=== PATIENT | female | born 1960 ===

== ENCOUNTER 2024-03-21 18:10 | Emergency (ER) | payer SELFPAY ==
[~2024-03-21] VITALS: Ht 152.4 cm; Wt 49.9 kg
[2024-03-21] MEDS ORDERED: NS 1,000 ML IV SCH (18:25)
[2024-03-21 18:55] LABS: BASOPHILS ABSOLUTE AUTO 0.06 K/mm3 (0.00-0.23); BASOPHILS PERCENT AUTO 1 % (0-2); EOSINOPHILS ABSOLUTE AUTO 0.13 K/mm3 (0.00-0.68); EOSINOPHILS PERCENT AUTO 3 % (0-6); Hemoglobin 12.6 g/dL (11.5-16.0); IMMATURE GRAN PERCENT AUTO 0 % (0-1); LYMPHOCYTES ABSOLUTE AUTO 2.45 K/mm3 (0.84-5.20); LYMPHOCYTES PERCENT AUTO 47 % (21-46); MONOCYTES ABSOLUTE AUTO 0.48 K/mm3 (0.16-1.47); MONOCYTES PERCENT AUTO 9 % (4-13); Mean Corpuscular HGB 26.9 pg (26.0-34.0); Mean Corpuscular HGB Conc 32.3 g/dL (31.5-36.5); Mean Corpuscular Volume 83 fL (80-100); Mean Platelet Volume 11.2 fL (9.1-12.4); NEUTROPHILS ABSOLUTE AUTO 2.08 K/mm3 (1.96-9.15); NEUTROPHILS PERCENT AUTO 40 % (41-73); Platelet Count 336 K/mm3 (150-400); RDW Coefficient Variation 14.3 % (11.7-14.2); RDW Standard Deviation 42.7 fL (35.1-46.3); Red Blood Cell Count 4.69 M/mm3 (3.80-5.20)
[2024-03-21 19:14] LABS: Albumin, Blood 3.3 g/dL (3.4-5.0); Bilirubin, Total 0.7 mg/dL (0.1-1.0); Bun/Creatinine Ratio 25.7 (12.0-20.0); Calcium, Blood 8.7 mg/dL (8.5-10.1); Creatinine, Blood 0.97 mg/dL (0.40-1.00); Globulin, Blood 3.4 g/dL (2.2-4.0); Potassium, Blood 3.9 mmol/L (3.5-5.5); Total Protein, Blood 6.7 g/dL (6.4-8.2)
[2024-03-21 19:19] LABS: Influenza A, PCR NEGATIVE (NEGATIVE); Influenza B, PCR NEGATIVE (NEGATIVE); Resp Syncytial Virus, PCR NEGATIVE (NEGATIVE); SARS-Cov-2 (COVID-19) PCR, MMC NEGATIVE (NEGATIVE)
[2024-03-21] MEDS ORDERED: Ipratropium/Albuterol SulF 2.5-0.5MG/3 ML Amp INH ONE (19:40)
[2024-03-21] MEDS ORDERED: BUDESONIDE-FO10.2 G2 INH (21:24)
[2024-03-21] MEDS ORDERED: Prednisone20 MG PO (21:24)
[2024-03-21] MEDS ORDERED: PredniSONE 20 MG Tab PO ONE (21:25)
== END 2024-03-21 21:40 | disposition home or self-care (01) ==
LOC: ER 18:10
PROVIDERS: Emergency Medicine
DX: J98.01 Acute bronchospasm (principal); Z87.891 Personal history of nicotine dependence
CPT/HCPCS: 0241U; 71045; 80053; 84484; 85025; 93005; 93010; 94640; 94664; 99285-25; J7030; J7512

== ENCOUNTER → 2024-03-21 | Outpatient (CLI) | payer SELFPAY ==
[~2024-03-21] MED LIST: BUDESONIDE-FO10.2 G2 INH; Prednisone20 MG PO
[2024-03-21 16:26] LABS: BASOPHILS ABSOLUTE AUTO 0.07 K/mm3 (0.00-0.23); BASOPHILS PERCENT AUTO 1 % (0-2); EOSINOPHILS PERCENT AUTO 2 % (0-6); Hematocrit 37.1 % (33.0-51.0); Hemoglobin 12.5 g/dL (11.5-16.0); IMMATURE GRAN ABSOLUTE AUTO 0.01 K/mm3 (0.00-0.10); IMMATURE GRAN PERCENT AUTO 0 % (0-1); LYMPHOCYTES ABSOLUTE AUTO 2.32 K/mm3 (0.84-5.20); LYMPHOCYTES PERCENT AUTO 46 % (21-46); MONOCYTES PERCENT AUTO 10 % (4-13); Mean Corpuscular HGB 27.2 pg (26.0-34.0); Mean Corpuscular HGB Conc 33.7 g/dL (31.5-36.5); Mean Corpuscular Volume 81 fL (80-100); Mean Platelet Volume 11.3 fL (9.1-12.4); NEUTROPHILS ABSOLUTE AUTO 2.06 K/mm3 (1.96-9.15); NEUTROPHILS PERCENT AUTO 41 % (41-73); Platelet Count 332 K/mm3 (150-400); RDW Coefficient Variation 14.2 % (11.7-14.2); RDW Standard Deviation 41.3 fL (35.1-46.3); Red Blood Cell Count 4.59 M/mm3 (3.80-5.20); White Blood Cell Count 5.06 K/mm3 (4.00-11.30)
[2024-03-21 16:37] LABS: Albumin, Blood 3.1 g/dL (3.4-5.0); Albumin/Globulin Ratio 0.9 (0.8-1.8); Bilirubin, Total 0.7 mg/dL (0.1-1.0); Bun/Creatinine Ratio 21.6 (12.0-20.0); Calcium, Blood 8.8 mg/dL (8.5-10.1); Creatinine, Blood 1.11 mg/dL (0.40-1.00); Globulin, Blood 3.6 g/dL (2.2-4.0); Potassium, Blood 4.1 mmol/L (3.5-5.5); Total Protein, Blood 6.7 g/dL (6.4-8.2)
== END | disposition home or self-care (01) ==
LOC: LAB SHORT 16:21 → LAB 16:21
PROVIDERS: Family Medicine
DX: R07.9 Chest pain, unspecified (principal)
CPT/HCPCS: 80053; 84484; 85025

== ENCOUNTER 2024-03-26 16:46 | Inpatient (IN) | payer MEDICAID ==
[~2024-03-26] VITALS: Ht 152.4 cm; Wt 45.3 kg
[2024-03-26] MEDS ORDERED: Ipratropium/Albuterol SulF 2.5-0.5MG/3 ML Amp INH ONE (17:30)
[2024-03-26] MEDS ORDERED: Ondansetron HCl 2 MG / ML 2ML Vial IV ONE (17:30)
[2024-03-26 17:41] LABS: BASOPHILS ABSOLUTE AUTO 0.02 K/mm3 (0.00-0.23); BASOPHILS PERCENT AUTO 0 % (0-2); EOSINOPHILS ABSOLUTE AUTO 0.03 K/mm3 (0.00-0.68); EOSINOPHILS PERCENT AUTO 1 % (0-6); Hematocrit 37.8 % (33.0-51.0); Hemoglobin 12.5 g/dL (11.5-16.0); IMMATURE GRAN ABSOLUTE AUTO 0.03 K/mm3 (0.00-0.10); IMMATURE GRAN PERCENT AUTO 1 % (0-1); LYMPHOCYTES ABSOLUTE AUTO 0.97 K/mm3 (0.84-5.20); LYMPHOCYTES PERCENT AUTO 17 % (21-46); MONOCYTES ABSOLUTE AUTO 0.22 K/mm3 (0.16-1.47); MONOCYTES PERCENT AUTO 4 % (4-13); Mean Corpuscular HGB 27.2 pg (26.0-34.0); Mean Corpuscular HGB Conc 33.1 g/dL (31.5-36.5); Mean Corpuscular Volume 82 fL (80-100); Mean Platelet Volume 11.5 fL (9.1-12.4); NEUTROPHILS ABSOLUTE AUTO 4.57 K/mm3 (1.96-9.15); NEUTROPHILS PERCENT AUTO 78 % (41-73); Platelet Count 325 K/mm3 (150-400); RDW Coefficient Variation 14.5 % (11.7-14.2); RDW Standard Deviation 42.6 fL (35.1-46.3); Red Blood Cell Count 4.59 M/mm3 (3.80-5.20); White Blood Cell Count 5.84 K/mm3 (4.00-11.30)
[2024-03-26 17:57] LABS: Albumin, Blood 3.2 g/dL (3.4-5.0); Bilirubin, Total 0.7 mg/dL (0.1-1.0); Bun/Creatinine Ratio 33.4 (12.0-20.0); Calcium, Blood 8.5 mg/dL (8.5-10.1); Creatinine, Blood 0.81 mg/dL (0.40-1.00); Globulin, Blood 3.2 g/dL (2.2-4.0); Total Protein, Blood 6.4 g/dL (6.4-8.2)
[2024-03-26 18:47] LABS: Influenza A, PCR NEGATIVE (NEGATIVE); Influenza B, PCR NEGATIVE (NEGATIVE); Resp Syncytial Virus, PCR NEGATIVE (NEGATIVE); SARS-Cov-2 (COVID-19) PCR, MMC NEGATIVE (NEGATIVE)
[2024-03-26] MEDS ORDERED: CefTRIAXone Sodium 1,000 MG in NS 100 ML IV ONE (19:20)
[2024-03-26] MEDS ORDERED: Furosemide 10 MG / ML 2ML Vial IV ONE ×2 (19:25→22:00)
[2024-03-26] MEDS ORDERED: Albuterol 2.5 MG/3 ML VIAL INH PRN (21:35)
[2024-03-26] MEDS ORDERED: Ondansetron HCl 2 MG / ML 2ML Vial IV PRN (21:35)
[2024-03-26] MEDS ORDERED: LORazepam 2 MG/ML 1ML Injection IV PRN (21:40)
[2024-03-26] MEDS ORDERED: FLU VACC TS2024-25(6MOS UP)/PF 45 MCG/0.5 ML SYRINGE IM SCH (21:40)
[2024-03-26] MEDS ORDERED: Nitroglycerin 1 INCH/GM PKT TOP ONE (22:00)
[2024-03-26 22:19] LABS: U Amphetamine Screen DETECTED; U Barbituate Screen Not Detected; U Benzodiazapine Screen Not Detected; U Buprenorphine Screen Not Detected; U Cannabinoids Screen Not Detected; U Cocaine Screen Not Detected; U Methadone Screen Not Detected; U Methamphetamine Screen DETECTED; U Opiates Screen Not Detected; U Oxycodone Screen Not Detected; U Phencyclidine Screen Not Detected
[2024-03-26 22:37] LABS: Thyroid Stimulating Hormone 0.598 uIU/mL (0.360-4.800)
[2024-03-26 22:38] LABS: Base Excess Venous 5.3 mmol/L; Bicarbonate Venous 28.7 mmol/L (24.0-30.0); PCO2 Venous 42.7 mmHg (38-42); pH Blood Venous 7.45 (7.34-7.37)
[2024-03-27] VITALS (8 sets, daily range): BP systolic 127–150; BP diastolic 85–111
[2024-03-27] MEDS ORDERED: Acetaminophen 325 MG TABLET PO PRN (02:45)
--- NOTE | 2024-03-27 05:15 | NUR ---
SHIFT SUMMARY; PT ARRIVED INT HE ROOM FROM [facility] AT APPROX 0005. PT IS HERE FOR RESPIRATORY FAILURE D/T HEART FAILURE. PT WAS LETHARGIC UPON ARRIVAL FALLING BACK TO SLEEP WHILE ASKING QUESTIONS. THEN AT APPROX 0300 PT STARTED WAKING UP AND ASKED FOR FOOD. PT HAS BEEN ALERT AND ORIENTED X3-4, COOPERATIVE WITH CARES, PT ALSO ADMITS USE OF METH AND IS TRYING TO QUIT RECENTLY, AND THAT PT MOVED A COUPLE WEEKS AGO FROM [place], TO HELP HER QUIT. PT HAS BEEN DIURESING. PUREWICK IN PLACE FOR ACCURATE I&O'S. VITALS HRR SR 90'S, SBP 140-150'S, SATS >92% ON 2L OF O2. PT REPORTED HEADACHE TYLENOL WAS GIVEN AND WAS EFFECTIVE. PT HAS SLEPT T/O NIGHT, NO OTHER ISSUES REPORTED FOR THE SHIFT, WILL REPORT TO ONCOMIGN SHIFT
[2024-03-27 05:32] LABS: Bilirubin, Total 0.4 mg/dL (0.1-1.0); Bun/Creatinine Ratio 29.1 (12.0-20.0); Calcium, Blood 8.1 mg/dL (8.5-10.1); Creatinine, Blood 0.9 mg/dL (0.40-1.00); Globulin, Blood 2.9 g/dL (2.2-4.0); Magnesium, Blood 1.8 mg/dL (1.6-2.4); Potassium, Blood 3.4 mmol/L (3.5-5.5); Total Protein, Blood 5.9 g/dL (6.4-8.2)
[2024-03-27] MEDS ORDERED: Potassium Chloride 20 MEQ TabCR PO ONE ×2 (08:15→13:20)
[2024-03-27] MEDS ORDERED: Furosemide 10 MG/ML 4ML Vial IV SCH ×2 (09:00)
[2024-03-27] MEDS ORDERED: Enoxaparin 40 MG/0.4 ML SYR SC SCH (09:00)
[2024-03-27] MEDS ORDERED: Metoprolol Succinate 25 MG TABCR PO SCH (10:00)
--- NOTE | 2024-03-27 15:30 | NUR ---
TRANSFER TO MEDICAL FLOOR NOTE PT A&OX4 THROUGHOUT SHIFT. PT REPORTS NO CP BUT REPORTS SOB THAT SEEMS TO BE INPROVING. PTS O2 TITRATED DOWN TO 1L NC. MAINTAINING O2 SATS ABOVE 92% WITH OCCASIONAL DESATURATION WHILE SLEEPING. PT DROWSY THIS AM BUT EASILY ARROUSABLE AND BECAME MORE AWAKE AND ALERT THIS AFTERNOON. ECHO WAS PERFORMED THIS MORNING. PT RECIEVED A BED BATH AND BECAME SOB WHEN MOBILITY ARCHITECT LAID PT FLAT. PT WAS SAT BACK UP AND SOB WAS RESOLVED AFTER A COUPLE OF MINUTES. NO ACUTE CHANGES HAPPENED DURING THIS SHIFT. REPORT TO FLOOR RN. PTS BELONGINGS COLLECTED AND PT TRANSPORTED TO ROOM 355 VIA GURNEY BY BERRY.
--- NOTE | 2024-03-27 17:25 | NUR ---
RN NOTE MS HANDY TRANSFERED FROM PCU TO MEDICAL UNIT AT 1530HRS VIA BED. SHE IS ON CONTINUOUS PULSE OXIMETER, CURRENTLY 98% ON 2LNC, WAS DROPPING INTO THE 80S ON 1L NC EARLIER. SHE WAS USING A PUREWICK IN PCU WHICH WAS REMOVED ON TRANSFER. 1 PERSON ASSIST UP TO BEDSIDE COMMODE. SOB O/E BUT MAINTAINED O2 SATURATION. SR ON TELEMETRY, NO CALLS FROM BISTRO SERVER. SHE DESCRIBES 7/10 PAIN ACROSS HER UPPER CHEST, WORSE ON MEDIUM TO DEEP BREATH. SHE SAID THIS IS THE SAME PAIN SHE HAS HAD SINCE ADMISSION. SHE SAID SHE ALSO HAD LEFT LOWER CHEST PAIN WHICH SHE NO LONGER HAS. PAIN INCREASES WHEN SHE CHANGES POSITION. SHE IS SLEEPY BUT EASILY AROUSABLE. APPROPRIATE CONVERSATION. FAMILY EN ROUTE FROM [place], DAUGHTER AWARE OF DEPARTMENT/ROOM CHANGE. BED LOW, CALL LIGHT IN REACH, BED ALARM ON.
[2024-03-28 03:16] VITALS: BP 133/96
[2024-03-28 05:48] LABS: Bilirubin, Total 0.4 mg/dL (0.1-1.0); Bun/Creatinine Ratio 28.4 (12.0-20.0); Calcium, Blood 8.4 mg/dL (8.5-10.1); Creatinine, Blood 1.16 mg/dL (0.40-1.00); Globulin, Blood 3.1 g/dL (2.2-4.0); Total Protein, Blood 6.1 g/dL (6.4-8.2)
[2024-03-28 07:35] VITALS: BP 154/104
--- NOTE | 2024-03-28 08:05 | NUR ---
SHIFT SUMMARY PT IS A&OX4, WITHDRAWN. VSS ON 2L NC. PER TELEMETRY PT IS SR 70-80'S. C/O PAIN IN HER ABD 12/15, MEDICATED WITH PRN 650 MG PO TYLENOL, AND GAVE HER A SNACK. TOLERATING A REGULAR DIET. X1 ASSIST TO BSC. PT DYSPNEIC WITH EXERTION. BED IN LOWEST POSITION, CALL LIGHT WITHIN REACH. BED ALARM SET FOR PT'S SAFETY.
[2024-03-28] MEDS ORDERED: Empagliflozin 10 MG TAB PO SCH (09:00)
[2024-03-28] MEDS ORDERED: Losartan Potassium 25 MG Tab PO SCH (12:00)
[2024-03-28 13:19] VITALS: BP 153/104
--- NOTE | 2024-03-28 14:52 | NUR ---
pt reports increased sob after lying flat in bed. biox 82%. increased oxygen to 5 liters and elevated hob. pts biox returned to 98% within 2 min. pt pursed lip breathing. oxygen decreased to 2 liters and pt maintaing biox of 98%
[2024-03-28 15:01] VITALS: BP 145/104
--- NOTE | 2024-03-28 16:11 | NUR ---
PATIENT CALLED THIS RN TO HER ROOM STATING HER [id number] WAS ON THE PHONE AND REQUESTING AN UPDATE ON HER CONDTION. [id number], [place], STATED PATIENT NEEDS TO CALL HER , ROLANDO JOHNSTON, AT [phone]. SHE ALSO NEEDS THE PATIENT TO CALL HER INSURANCE COMPANY TO DISCUSS AUTHORIZATION FOR HER ALBUTEROL THAT WAS RXd AT HER LAST DC. TOLD HER PATIENT LIKELY WOULD NOT BE ABLE TO DO THIS AT THIS POINT IN TIME DUE TO EXTREME DYSPNEA AND FATIGUE WITH LONG CONVERSATIONS. OF NOTE, DAUGHTER, PAKO, CALLED, WELL. PER PATIENT, OKAY TO DISCUSS CARE WITH DAUGHTER. [phone].
[2024-03-28] MEDS ORDERED: Guaifenesin/Dextromethorphan Syrup 5 ML UDC PO PRN (17:55)
--- NOTE | 2024-03-28 17:55 | NUR ---
PATIENT WITH C/O COUGH AND REQUESTING COUGH SYRUP. LUNG SOUNDS WITH INCREASED FINE CRACKLES BIBASILARLY. NO EDEMA IN BLEs. CALL TO DR NAM; VERBAL RECEIVED FOR ANTITUSSIVE Q4H PRN.
--- NOTE | 2024-03-28 19:33 | NUR ---
END OF SHIFT SUMMARY: A&Ox4. PLEASANT AND COOPERATIVE WITH CARE. CALLS APPROPRIATELY AND IS ABLE TO ADVOCATE NEEDS EFFECTIVELY. FLAT AFFECT VERSUS FATIGUE R/T CARDIAC ISSUES. AMBULATES INDEPENDENTLY TO BATHROOM FOR UNMEASURED VOIDS. CONTINENT OF BOWEL AND BLADDER. MEDS WHOLE WITH FLUIDS. TELE NORMAL SINUS. PAIN IN LUQ THIS MORNING 08/15. C/O PERSISTENT, DRY COUGH THIS EVENING. ORDER FOR PRN ANTITUSSIVE OBTAINED. PATIENT ASKING "WHAT TIME IS SURGERY TOMORROW?" THIS RN UNAWARE OF ANY PROCEDURE BEING DONE. UPON READING CONSULT NOTE WITH CARDIOLOGY, IT APPEARS PATIENT IS TO HAVE A DIAGNOSTIC CARDIAC CATHETERIZATION TOMORROW. NO PRE-OP ORDERS RECEIVED AND UNKNOWN WHEN PROCEDURE IS SCHEDULED. BED IN LOWEST POSITION. CALL LIGHT WITHIN REACH. ALL NEEDS MET. REPORT TO ONCOMING NURSE.
[2024-03-28 19:39] VITALS: BP 129/85
[2024-03-29] VITALS (10 sets, daily range): BP systolic 131–168; BP diastolic 91–117
--- NOTE | 2024-03-29 05:22 | NUR ---
AUTOMOBILE CARPETS MOLDER SUMMARY PT ALERT, FLAT AFFECT/WITHDRAWN. PT PRESENTS WITH FORGETFULNESS AND/OR DISCONNECT FROM PLAN OF CARE. PT HAD CARDIAC CONSULT WITH DR DAO--PLAN FOR DIAGNOSTIC RIGHT/LEFT ANGIOGRAM. PER PATIENT--DR REQUSTED SHE BE NPO AT 2300. DR DAO NOTES INDICATE PLAN FROM PROCEDURE BUT NO PREOP ORDERS. MADE PT NPO AT 2300. PT WOULD ASK [place] TIMES T/O THE NIGHT WHEN PROCEDURE IS SCHEDULED; ADVISED PT THE SCHEDULE IS NOT KNOWN. EDUCATED PT ON NEED TO BE NPO FOR PROCEDURE. PT CONTINUES TO ASK FOR SOMETHING TO DRINK T/O THE NIGHT. REORIENTED PT TO PLAN OF CARE. PT WAS FOUND AT SINK AT 0440 TAKING SIPS FROM THE FAUCET. REMINDED PT AGAIN SHE NEEDED TO BE NPO--PT RESPONDED "REALLY? I AM SO THIRSTY" THIS RN UNSURE IF PT IS FORGETFUL OR NON COMPLIANT. PT IS PLEASANT AND OTHERWISE COOPERATIVE WITH HER CARE. PT APPEARS ANXIOUS/CONCERNS ABOUT PROCEDURE BUT DENIES ANXIETY WHEN ASKED. PATIENT IS ON CONTINUOUS BIOX. PT IS MAINTAINING SAT >90 ON 3LPM. PT OXYGEN CAME OF WHEN SLEEPING AND BIOX ALARMED--PT WAS DROPPING INTO LOW 80'S. PT NEEDED PROMPTING TO PUT OXYGEN BACK ON AND TAKE DEEP BREATHS. REGULAR INTERVAL ROUNDING COMPLETE. CALL LIGHT ACCESSIBLE. BED ALARM IN PLACE--SBA PT TO BSC DUE TO WEAKNESS, LINES, AND MENTATION.
[2024-03-29 05:41] LABS: Bun/Creatinine Ratio 29.8 (12.0-20.0); Calcium, Blood 8.8 mg/dL (8.5-10.1); Creatinine, Blood 0.97 mg/dL (0.40-1.00); Potassium, Blood 4.2 mmol/L (3.5-5.5)
--- NOTE | 2024-03-29 06:15 | NUR ---
PHYSICIAN CONTACT PHONE CALL FROM DR DAO--DR REQUEST TO KEEP PT NPO. PT WILL BE GOING TO THE INTEGRATED PEST MANAGEMENT TECHNICIAN. DR UNABLE TO GIVE A TIME FOR PROCEDURE. ADVISED DR PT HAD FEW SIPS OF WATER AT 0440. STATED THAT WAS OKAY.
[2024-03-29] MEDS ORDERED: Nitroglycerin 2 MG/20 ML BTL ONE (08:28)
[2024-03-29] MEDS ORDERED: NS 250 ML IV ONE (08:28)
[2024-03-29] MEDS ORDERED: Heparin Sodium 1000 Units/ML 10ML MDV ONE (08:28)
[2024-03-29] MEDS ORDERED: NS 1,000 ML IV ONE (08:28)
[2024-03-29] MEDS ORDERED: Verapamil HCL 2.5 MG/ML 2ML Injection ONE (08:28)
[2024-03-29] MEDS ORDERED: FentaNYL Citrate 50 MCG/ML 2 ML Injection ONE (08:36)
[2024-03-29] MEDS ORDERED: Midazolam HCl 1MG / ML 2ML Vial ONE (08:36)
[2024-03-29] MEDS ORDERED: NS 500 ML IV ONE (08:36)
--- NOTE | 2024-03-29 08:46 | NUR ---
PT TAKEN DOWN TO RESIDENTIAL PROGRAM DIRECTOR AT APPROX 0840. ALL BELONGINGS SENT WITH FAMILY. AWAITING PCU ROOM.
--- NOTE | 2024-03-29 10:24 | NUR ---
REPORT GIVEN TO FAUSTO MAYNARD IN PCU
--- NOTE | 2024-03-29 10:24 | NUR ---
ASSUMPTION OF CARE PT ARRIVED TO PCU FROM SUPERVISOR INSPECTION ROOM AROUND 1020. RIGHT AC AND RIGHT RADIAL SITE. SMALL HEMATOMA OF THE RIGHT RADIAL SITE, SUPERVISOR INSPECTION ROOM RN TO BEDSIDE, PRESSURE HELD FOR 5 MINUTES, HEMATOMA RESOLVED WITH PRESSURE, TR BAND IN PLACE AND ARMBOARD ON. SINUS RHYTHM ON THE 60'S, SBP STABLE, 02 >92> ON 2L. PT RESTING WITH EYES CLOSED, BREATHING EVEN AND UNLABORED. WILL CONTINUE TO MONITOR PT.
[2024-03-29] MEDS ORDERED: Torsemide 20 MG TAB PO SCH (11:00)
[2024-03-29] MEDS ORDERED: Furosemide 10 MG/ML 4ML Vial IV SCH (13:00)
--- NOTE | 2024-03-29 17:39 | NUR ---
SHIFT SUMMARY NO ACUTE CHANGES T/O SHIFT. RIGHT RADIAL SITE RECOVERED, 2CC TAKEN OUT OF TR BAND EVERY 5-10 MINUTES, NO BLEEDING OR HEMATOMA NOTED, RIGHT RADIAL SITE COVERED WITH TEGADERM. RIGHT BRACHIAL SITE WITH GAUZE AND TEGADERM, NO BLEDDING NOTED. DIUERESING PT WITH STRICT I'S/O'S. SBP ELEVATED, MEDICATING PER EMAR. POSSIBLE DISCHARGE TOMORROW, WILL CONTINUE TO MONITOR PT AND REPORT TO SOFTWARE RELIABILITY ENGINEER RN. FAMILY HAS REMIANED AT BEDSIDE ALL AFTERNOON, PT AND FAMILY GIVEN EDUCATION PACKET ON CHF.
--- NOTE | 2024-03-29 20:00 | NUR ---
ASSUMPTION OF CARE NOTE A/Ox4 AND COOPERATIVE WITH CARE. MUMBLED SPEECH AT TIMES, BUT ABLE TO MAKE HER NEEDS KNOWN. CARDIAC, TELEMTRY SHOWS SR 70-80'S WITH NO REPORTS OF CP, PRESSURE OR DIZZINESS. SBP STABLE RANGING 130'S. RIGHT RADIAL AND R BRACHIAL ACCESS SITES RECOVERED. SMALL HEMATOMA NOTED ABOVE RADIAL SITE, BUT PT DENIES ANY TENDERNESS OR N/T. RADIAL PULSE PALPIBLE WITH HAND WARM TO THE TOUCH. RESPIRATORY, PT MAINTAINING SPO2 >94% ON RA WITH NO SOB OR DYSPNEA AT REST. DOES ENDORSE SOME EXERTIONAL DYSPNEA HOWEVER. GI/, BS PRESENT IN ALL QUADRANTS WITH NO REPORTS OF N/V/D OR ABD TENDERNESS AT THIS TIME. ABLE TO AMBULATE TO BATHROO VIA SBA DUE TO LINE MANAGEMENT. 1xPIV LOCATED ON LAC FLUSHES WELL. WATER AND SNACKS PROVIDED PER PT'S REQUEST. SEVERAL FAMILY MEMBERS AT BEDSIDE. DENIES ANY OTHER NEEDS AT THIS TIME.
[2024-03-30] VITALS (7 sets, daily range): BP systolic 128–150; BP diastolic 87–99
[2024-03-30 04:46] LABS: Bun/Creatinine Ratio 29.1 (12.0-20.0); Calcium, Blood 8.4 mg/dL (8.5-10.1); Potassium, Blood 3.7 mmol/L (3.5-5.5)
--- NOTE | 2024-03-30 05:12 | NUR ---
SHIFT SUMMARY NO ACUTE CHANGES SINCE ASSUMPTION OF CARE NOTE. SEE NOTE FOR DETAILS. HAD TO BE PLACED ON 2L NC WHEN SLEEPING TO MAINTAIN SPO2 >90%, BUT ABLE TO BE TITRATED TO RA WHEN AWAKE. ANGIO ACCESS SITES ARE FULLY RECOVERED WITH NO PROGRESSION OF HEMATOMA/BRUISING NOTED. FAMILY FROM [place] REMAIN AT BEDSIDE. NO NEW ORDERS AT THIS TIME, WILL REPORT TO ONCOMING RN. BIJU BENTLEY OF THIS NOTE.
[2024-03-30] MEDS ORDERED: Spironolactone 25 MG Tab PO SCH (09:00)
[2024-03-30] MEDS ORDERED: Torsemide 20 MG TAB PO SCH (09:00)
--- NOTE | 2024-03-30 12:16 | NUR ---
ASSUMED CARE OF PT AT 0700 THIS AM. SEE DOCUMENTED VS AND ASSESSMENT. 3 FAMILY MEMBERS IN ROOM, ALL GIVEN UPDATE BY DR NAM THIS AM. PT ON RA, OOB W ASSIST AMBULATING IN ROOM. PT STATES SHE IS FEELING BETTER. FAMILY COMMUNICATE WITH THIS RN THAT THEY ARE PLANNING TO TAKE THE PT BACK TO [place] WITH THEM SO THEY CAN CARE FOR HER. PT OOB FOR SHOWER THIS AM WELL. NO ACUTE EVENTS. WILL CONTINUE TO MONITOR, CALL LIGHT IN REACH, FAMILY AT BEDSIDE.
--- NOTE | 2024-03-30 18:23 | NUR ---
NO ACUTE CHANGES SINCE LAST NOTE. PT HAS HAD A FEW UNMEASURED VOIDS T/O THE DAY. EDUCATED PT AND FAMILY ABOUT IMPORTANCE OF ACCURATE I/Os. PT STATES HER BREATHING FEELS EVEN BETTER THAN THIS AM. DECREASE IN BLOOD PRESSURE NOTED, PT DENIES FEELINGS OF DIZZINESS/LIGHT-HEADEDNESS. FAMILY MEMBERS HAVE BEEN AT BEDSIDE MOST OF THE DAY AND ASSIST PT WITH HER CARE. PT/FAMILY IS HOPING TO BE DISCHARGED TOMORROW. PT REMAINED APPROPRIATE AND COOPERATIVE T/O THE SHIFT. BED IN LOWEST, LOCKED POSITION, CALL LIGHT IN REACH. WILL CONTINUE TO MONITOR AND GIVE REPORT TO NOC SHIFT RN.
[2024-03-31 04:14] VITALS: BP 140/88
[2024-03-31 05:02] LABS: Bun/Creatinine Ratio 29.5 (12.0-20.0); Calcium, Blood 8.6 mg/dL (8.5-10.1); Creatinine, Blood 1.12 mg/dL (0.40-1.00)
--- NOTE | 2024-03-31 05:33 | NUR ---
SHIFT SUMMARY PATIENT ALERT AND ORIENTED X4. HAD NO COMPLAINTS OF PAIN OR SHORTNESS OF BREATH. WAS INDEPENDENT IN HER ROOM. REPORTED HAVING SOME DIZZINESS AT THE BEGINNING OF THE NIGHT WHICH IS NOW RESOLVED. PATIENT ON ROOM AIR WITH SPO2 >90%. VITAL SIGNS STABLE, SINUS RHYTHM ON TELE. NO ACUTE ISSUES NOTED OVERNIGHT. WILL CONTINUE TO MONITOR. CALL LIGHT WITHIN REACH.
[2024-03-31] MEDS ORDERED: ACET325 PO (09:05)
[2024-03-31] MEDS ORDERED: LOSA25 PO (09:09)
[2024-03-31] MEDS ORDERED: JARDIANCE10 MG PO (09:09)
[2024-03-31] MEDS ORDERED: GUAIFENESIN-DM 15 M2 PO (09:09)
[2024-03-31] MEDS ORDERED: FURO40 PO (09:10)
[2024-03-31] MEDS ORDERED: SPIR25 PO (09:10)
[2024-03-31] MEDS ORDERED: METO25ER PO (09:10)
--- NOTE | 2024-03-31 09:38 | NUR ---
DR DAO CONTACTED BY THIS RN REQUESTED BY DR NAM. CLEARED FOR DISCHARGE PER CARDIOLOGY, FOLLOW UP IN CLINIC 2-3 WEEKS.
[2024-03-31 09:50] VITALS: BP 134/77
--- NOTE | 2024-03-31 12:13 | NUR ---
ASSUMED CARE OF PT AT 0700 THIS AM. NO ACUTE EVENTS. DISCHARGE TEACHING REVIEWED WIT PT/FAMILY INCLUDING MEDICATION LIST, FOLLOW UP APPOINTMENTS AND AFTER CARE INSTRUCTIONS. PT/FAMILY HAVE NO QUESTIONS OR CONCERNS. IV AND TELEMETRY REMOVED. PT DISCHARGED IN THE CARE OF HER FAMILY. NO FURTHER DISCHARGE NEEDS IDENTIFIED.
== END 2024-03-31 12:00 | disposition home or self-care (01) | DRG 286 ==
LOC: ER 16:46 → PCU 21:33 → MEDS 21:33 → PCU 03-27 00:23 → MEDS 03-27 15:24 → PCU 03-29 10:20
PROVIDERS: Internal Medicine; Nurse Practitioner Acute Care; Student in an Organized Health Care Education/Training Program; ADMIT Internal Medicine
PROC: 4A023N6 Measurement of Cardiac Sampling and Pressure, Right Heart, Percutaneous Approach (ICD-10-PCS; principal; 2024-03-29)
PROC: B2111ZZ Fluoroscopy of Multiple Coronary Arteries using Low Osmolar Contrast (ICD-10-PCS; 2024-03-29)
DX: I11.0 Hypertensive heart disease with heart failure (principal); G92.8 Other toxic encephalopathy; I50.21 Acute systolic (congestive) heart failure; J96.01 Acute respiratory failure with hypoxia; J44.9 Chronic obstructive pulmonary disease, unspecified; F15.10 Other stimulant abuse, uncomplicated; I27.20 Pulmonary hypertension, unspecified; R74.01 Elevation of levels of liver transaminase levels; I42.7 Cardiomyopathy due to drug and external agent; I07.1 Rheumatic tricuspid insufficiency; Z79.899 Other long term (current) drug therapy; Z87.891 Personal history of nicotine dependence; Z71.51 Drug abuse counseling and surveillance of drug abuser
CPT/HCPCS: 0241U; 36415; 71045; 76937; 80048; 80053; 82803; 83735; 83880; 84443; 84484; 85025; 93005; 93010; 93306; 93460; 94640; 94664; 94762; 96365; 96375; 99152; 99285-25; A9270; C1769; C1887; C1894; J0696; J1644; J1650; J1940; J2250; J2405; J3010; J7030; J7040; J7050; Q9967